=== PATIENT | female | born 1990 | race Caucasian/White ===

== ENCOUNTER 2018-05-29 23:55 | Emergency (ER) | payer OTHER ==
[~2018-05-29] VITALS: Ht 160 cm; Wt 52.6 kg
[~2018-05-29 23:55] MED LIST: DEPAKOTE ER250 MG; TUSSI PRES-B L120 M1 PO; ZITHROMAX TRI-500 MG PO
== END 2018-05-30 03:23 | disposition home or self-care (01) ==
LOC: ER 23:55
DX: T15.12XA Foreign body in conjunctival sac, left eye, initial encounter (principal)

== ENCOUNTER 2019-11-18 09:23 | Emergency (ER) | payer OTHER ==
[~2019-11-18] VITALS: Ht 162.6 cm; Wt 56.7 kg
[2019-11-18] MEDS ORDERED: KETO10TA2 PO (15:21)
[2019-11-18] MEDS ORDERED: MUCINEX DM ER1 EAC1 PO (15:21)
[2019-11-18] MEDS ORDERED: ZITHROMAX500 MG PO (15:21)
[2019-11-18] MEDS ORDERED: TESSALON PERLE100 M1 PO (15:21)
== END 2019-11-18 15:30 | disposition home or self-care (01) ==
LOC: ER 09:23
DX: J06.9 Acute upper respiratory infection, unspecified (principal); J32.8 Other chronic sinusitis; B96.0 Mycoplasma pneumoniae [M. pneumoniae] as the cause of diseases classified elsewhere

== ENCOUNTER 2020-05-29 18:36 | Emergency (ER) | payer OTHER ==
[~2020-05-29] VITALS: Ht 160 cm; Wt 54.4 kg
[~2020-05-29 18:36] MED LIST changes: +KETO10TA2 PO; +MUCINEX DM ER1 EAC1 PO; +TESSALON PERLE100 M1 PO; +ZITHROMAX500 MG PO
== END 2020-05-29 20:36 | disposition home or self-care (01) ==
LOC: ER 18:36 → CPU-OBS 18:37 → ER 20:36
DX: R07.89 Other chest pain (principal)
CPT/HCPCS: G0378; G0379; 93005; 82805; 36600

== ENCOUNTER 2020-06-13 21:36 | Emergency (ER) | payer OTHER ==
[~2020-06-13] VITALS: Ht 160 cm; Wt 54.4 kg
== END 2020-06-13 22:49 | disposition home or self-care (01) ==
LOC: ER 21:36
DX: M94.0 Chondrocostal junction syndrome [Tietze] (principal)

== ENCOUNTER 2020-06-24 01:00 | Emergency (ER) | payer OTHER ==
[~2020-06-24] VITALS: Ht 160 cm; Wt 54.4 kg
[2020-06-24] MEDS ORDERED: MOBIC15 MG PO (04:35)
[2020-06-24] MEDS ORDERED: NORFLEX100MG PO (04:35)
[2020-06-24] MEDS ORDERED: PEPCID40 MG PO (04:35)
[2020-06-24] MEDS ORDERED: ZITHROMAX500 MG PO (04:35)
== END 2020-06-24 05:15 ==
LOC: ER 01:00
DX: R53.81 Other malaise (principal); R53.83 Other fatigue; R10.13 Epigastric pain; Z20.828 Contact with and (suspected) exposure to other viral communicable diseases

== ENCOUNTER 2020-09-03 19:48 | Emergency (ER) | payer OTHER ==
[~2020-09-03] VITALS: Ht 160 cm; Wt 53.1 kg
[~2020-09-03 19:48] MED LIST changes: +MOBIC15 MG PO; +NORFLEX100MG PO; +PEPCID40 MG PO
[2020-09-04] MEDS ORDERED: PHENAGIL CH TA1 EACH PO (01:06)
[2020-09-04] MEDS ORDERED: ZITHROMAX500 MG PO ×2 (01:09)
== END 2020-09-04 01:22 | disposition home or self-care (01) ==
LOC: ER 19:48
DX: R53.81 Other malaise (principal); R51.9 Headache, unspecified; Z03.818 Encounter for observation for suspected exposure to other biological agents ruled out

== ENCOUNTER 2020-10-13 18:53 | Emergency (ER) | payer OTHER ==
[~2020-10-13] VITALS: Ht 160 cm; Wt 54.4 kg
[~2020-10-13 18:53] MED LIST changes: +PHENAGIL CH TA1 EACH PO
== END 2020-10-13 20:36 | disposition home or self-care (01) ==
LOC: ER 18:53
DX: N39.0 Urinary tract infection, site not specified (principal); B96.29 Other Escherichia coli [E. coli] as the cause of diseases classified elsewhere

== ENCOUNTER 2020-10-25 17:52 | Emergency (ER) | payer OTHER ==
[~2020-10-25] VITALS: Ht 162.6 cm; Wt 54.4 kg
== END 2020-10-25 19:55 | disposition home or self-care (01) ==
LOC: ER 17:52
DX: B34.9 Viral infection, unspecified (principal); Z20.822 Contact with and (suspected) exposure to COVID-19

== ENCOUNTER → 2020-12-24 | Emergency (ER) | payer OTHER ==
[~2020-12-24] VITALS: Ht 160 cm; Wt 53.5 kg
[~2020-12-24] MED LIST changes: +MAXALT10 MG PO
== END | disposition home or self-care (01) ==
LOC: ER 07:01
DX: G43.809 Other migraine, not intractable, without status migrainosus (principal); G44.89 Other headache syndrome; Z03.818 Encounter for observation for suspected exposure to other biological agents ruled out

== ENCOUNTER 2022-01-13 15:04 | Emergency (ER) | payer OTHER ==
[~2022-01-13] VITALS: Ht 162.6 cm; Wt 52.6 kg
== END 2022-01-13 18:17 | disposition home or self-care (01) ==
LOC: ER 15:04
DX: R53.81 Other malaise (principal); Z20.822 Contact with and (suspected) exposure to COVID-19

== ENCOUNTER 2022-09-01 22:59 | Emergency (ER) | payer OTHER ==
[~2022-09-01] VITALS: Ht 162.6 cm; Wt 57.2 kg
[2022-09-02] MEDS ORDERED: LEVSIN0.125 MG SL (06:06)
[2022-09-02] MEDS ORDERED: PEPCID40 MG PO (06:06)
[2022-09-02] MEDS ORDERED: INTESTINEX680 M1 PO (06:06)
[2022-09-02] MEDS ORDERED: ONDANSETRON ODT4 MG PO ×2 (06:07→06:09)
== END 2022-09-02 06:11 ==
LOC: ER 22:59
DX: K52.9 Noninfective gastroenteritis and colitis, unspecified (principal); Z91.018 Allergy to other foods

== ENCOUNTER 2023-11-16 23:05 | Emergency (ER) | payer OTHER ==
[~2023-11-16] VITALS: Ht 162.6 cm; Wt 59.9 kg
[~2023-11-16 23:05] MED LIST changes: +INTESTINEX680 M1 PO; +LEVSIN0.125 MG SL; +ONDANSETRON ODT4 MG PO
[2023-11-17 03:13] LABS: PH,URINE 6.5 (5.0-8.0); URINE APPEARANCE Clear; URINE BILIRRUBIN Negative (NEGATIVE); URINE BLOOD Moderate; URINE COLOR Yellow; URINE GLUCOSE Negative (NEGATIVE); URINE LEUKOCYTE Large; URINE NITRATE Negative; URINE PROTEIN 30 (NEGATIVE); URINE UROBILINOGEN 0.2 E.U./dl
[2023-11-17 03:14] LABS: URINE BACTERIA 2054.6 uL (0.0-1933); URINE EPITHELIAL CELLS 2.3 uL (0.0-38.8); URINE RBC 25.4 uL (0.0-20.8)
[2023-11-17] MEDS ORDERED: PYRIDIUM DS200 MG PO (04:47)
[2023-11-17] MEDS ORDERED: CEPHALEXIN750 MG PO (04:47)
== END 2023-11-17 04:54 ==
LOC: ER 23:07
PROVIDERS: General Practice
DX: N39.0 Urinary tract infection, site not specified (principal); Z91.018 Allergy to other foods

== ENCOUNTER 2024-06-20 10:13 | Emergency (ER) | payer OTHER ==
[~2024-06-20] VITALS: Ht 162.6 cm; Wt 60.8 kg
[~2024-06-20 10:13] MED LIST changes: +CEPHALEXIN750 MG PO; +PYRIDIUM DS200 MG PO
[2024-06-20] MEDS ORDERED: HYOSCYAMINE SULFATE 0.125 MG TAB.SUBL SL ONE (12:00)
[2024-06-20] MEDS ORDERED: HYOSCYAMINE SULFATE 0.125 MG TAB.SUBL ONE (12:05)
[2024-06-20 12:25] LABS: HEMATOCRIT 40.4 % (36.0-45.00); HEMOGLOBIN 13.6 g/dL (12.0-15.00); MEAN CELL VOLUME 86.7 fL (80.00-100.00); MEAN CORPUSCULAR HEMOGLOBIN 29.1 pg (27.00-32.0); MEAN CORPUSCULAR HGB CONC 33.5 g/dl (32.0-36.0); PLATELET COUNT 336 K/uL (150-450); RED BLOOD COUNT 4.67 M/uL (4.00-6.00); RED CELL DISTRIBUTION WIDTH 12.9 % (11.5-14.5)
[2024-06-20 12:26] LABS: PH,URINE 6.5 (5.0-8.0); URINE APPEARANCE Clear; URINE BILIRRUBIN Negative (NEGATIVE); URINE BLOOD Moderate; URINE COLOR Yellow; URINE GLUCOSE Negative (NEGATIVE); URINE KETONE Negative (NEGATIVE); URINE LEUKOCYTE Negative; URINE NITRATE Negative; URINE PROTEIN Negative (NEGATIVE); URINE UROBILINOGEN 0.2 E.U./dl
[2024-06-20 12:30] LABS: URINE BACTERIA 195.2 uL (0.0-1933); URINE EPITHELIAL CELLS 4.6 uL (0.0-38.8); URINE RBC 2.5 uL (0.0-20.8); URINE WBC 6.6 uL (0.0-23.2)
[2024-06-20 13:11] LABS: ALBUMIN 4.1 gm/dL (3.4-5.0); BILIRUBIN TOTAL 0.4 mg/dL (0.3-1.2); CALCIUM 9.6 mg/dL (8.5-10.1); CREATININE SERUM 0.63 mg/dL (0.55-1.02); GFR 108.17; GLOBULINA 3.8 G/DL (2.4-3.5); POTASSIUM 4.41 mEq/L (3.5-5.1); TOTAL PROTEIN 7.9 gm/dL (6.4-8.2)
== END 2024-06-20 16:29 | disposition home or self-care (01) ==
LOC: ER 10:15
PROVIDERS: Emergency Medicine
DX: K52.9 Noninfective gastroenteritis and colitis, unspecified (principal); Z91.018 Allergy to other foods